=== PATIENT | female | born 1965 | race Caucasian/White ===

== ENCOUNTER 2019-12-03 11:54 | Observation (INO) ==
[~2019-12-03 11:54] MED LIST: Acetaminophen IV 1,000 MG/100 ML INFUS..BTL IVPB ONE; Celecoxib 200 MG CAPSULE PO ONE; Gabapentin 300 MG CAPSULE PO ONE; Total Joint Mixture (50 ml) IR ONE
[2019-12-03] MEDS ORDERED: Tranexamic Acid 1,000 MG/10 ML VIAL ONE (12:20)
[2019-12-03] MEDS ORDERED: Lidocaine -MPF 2% 2 ML VIAL ONE (12:20)
[2019-12-03] MEDS ORDERED: *HR* Midazolam HCl 2 MG/2 ML VIAL ONE (12:20)
[2019-12-03] MEDS ORDERED: Propofol 500 MG/50 ML INFUS..BTL ONE (12:20)
[2019-12-03] MEDS ORDERED: *HR* Propofol 200 MG/20 ML VIAL IVP ONE (12:20)
[2019-12-03] MEDS ORDERED: Albuterol 2.5 MG/3 ML NEBULIZER IH PRN (12:22)
[2019-12-03] MEDS ORDERED: CeFAZolin Syr 2,000MG/20 ML 2,000 MG/20 ML SYRINGE IVPB ONE (12:22)
[2019-12-03] MEDS ORDERED: Ringers Solution, Lactated 1,000 ML IVC SCH ×2 (12:30→17:37)
[2019-12-03] MEDS ORDERED: *HR* OxyCODONE Immed Rel 5 MG TABLET PO PRN (12:52)
[2019-12-03] MEDS ORDERED: *HR* Promethazine 25 MG/ML VIAL IVP PRN ×2 (12:52→17:37)
[2019-12-03] MEDS ORDERED: *HR* Labetalol 20 MG/4 ML SYRINGE IVP PRN (12:52)
[2019-12-03] MEDS ORDERED: Ondansetron 4 MG/2 ML VIAL IVP PRN ×2 (12:52→17:37)
[2019-12-03] MEDS ORDERED: *HR* HYDROmorphone 2 MG/ML SYRINGE IVP PRN (12:52)
[2019-12-03] MEDS ORDERED: Ethanol\\Acetic Acid\\Na Ace\\Ben 1,000 ML IRRIG.SOLN IR ONE (13:23)
[2019-12-03] MEDS ORDERED: ROPIVACAINE/PF/NS 0.25% 1 EACH SYRINGE INTRAART ONE (13:47)
[2019-12-03] MEDS ORDERED: *HR* FentaNYL (PF) 100 MCG/2 ML VIAL ONE (13:52)
[2019-12-03] MEDS ORDERED: *HR* PHENYLEPHRINE 1,000 MCG/10 ML SYRINGE IVP ONE ×2 (14:26→14:58)
[2019-12-03] MEDS ORDERED: Lidocaine OINT 35.44 GM TUBE TP ONE (15:47)
[2019-12-03 16:39] LABS: Hematocrit 43.8 % (35.3-44.9)
[2019-12-03 16:41] LABS: Hemoglobin 14.2 g/dL (11.5-15.4)
[2019-12-03] MEDS ORDERED: Sennosides 8.6 MG TABLET PO PRN (17:37)
[2019-12-03] MEDS ORDERED: Naloxone 0.4 MG/ML INJ IVP PRN (17:37)
[2019-12-03] MEDS ORDERED: MOM Conc 10 ML UD.LIQ PO PRN (17:37)
[2019-12-03] MEDS ORDERED: Temazepam 15 MG CAPSULE PO PRN (17:37)
[2019-12-03] MEDS: HYDROcodone BIT/Homatropine 5 MG TABLET PO PRN (19:19)
[2019-12-03] MEDS: Ascorbic Acid 500 MG TABLET PO SCH (19:20)
[2019-12-03] MEDS: Apixaban 5 MG TABLET PO SCH (20:53)
[2019-12-03] MEDS: Pregabalin 75 MG CAPSULE PO SCH (20:53)
[2019-12-04] MEDS: *HR* OxyCODONE Immed Rel 5 MG TABLET PO PRN ×3 (00:24→21:48)
[2019-12-04] MEDS: HYDROcodone BIT/Homatropine 5 MG TABLET PO PRN ×2 (02:17→15:58)
[2019-12-04 05:41] LABS: Basophils # 0.1 K/mcL (0.0-0.2); Basophils % 0.7 %; Eosinophils # 0.2 K/mcL (0.0-0.6); Eosinophils % 2.3 %; Hematocrit 41.8 % (35.3-44.9); Hemoglobin 13.4 g/dL (11.5-15.4); Immature Granulocytes % 0.3 % (0-4); Lymphocytes # 1.9 K/mcL (0.6-4.6); Lymphocytes % 22.1 %; Mean Corpuscular HGB Conc 32.1 g/dL (31.6-35.5); Mean Corpuscular Hemoglobin 31.2 pg (28.0-33.3); Mean Corpuscular Volume 97.2 fL (83.0-100.0); Mean Platelet Volume 9.7 fL (9.4-12.4); Monocytes # 0.6 K/mcL (0.0-1.3); Monocytes % 7.4 %; Neutrophils # 5.9 K/mcL (1.6-8.9); Platelet Count 223 K/mcL (140-400); Red Cell Distribution Width 13.2 % (11.5-14.5); Segmented Neutrophils % 67.2 %; White Blood Count 8.7 K/mcL (4.3-11.1)
[2019-12-04 06:03] LABS: BUN/Creatinine Ratio 22 (6-26); Blood Urea Nitrogen 16 mg/dL (6-20); Carbon Dioxide 25 mEq/L (23-29); Chloride 109 mEq/L (98-107); Glucose 98 mg/dL (70-105); Osmolality,Calculated 291 (280-300); Potassium 4.1 mEq/L (3.5-5.1); Sodium 140 mEq/L (136-145); eGFR For African Americans > 60 (> 60); eGFR For Non-African Americans > 60 (> 60)
[2019-12-04] MEDS: Apixaban 5 MG TABLET PO SCH (08:30)
[2019-12-04] MEDS: Pregabalin 75 MG CAPSULE PO SCH ×2 (08:30→19:54)
[2019-12-04] MEDS: Multivit/Ca/Min/Fe/FA 1 TAB TABLET PO SCH (08:31)
[2019-12-04] MEDS: Ascorbic Acid 500 MG TABLET PO SCH ×2 (08:31→15:58)
[2019-12-04] MEDS ORDERED: *HR* Enoxaparin 100 MG/ML SYRINGE SQ SCH (18:00)
[2019-12-05 01:18] LABS: Basophils # 0.1 K/mcL (0.0-0.2); Basophils % 0.4 %; Eosinophils # 0.1 K/mcL (0.0-0.6); Eosinophils % 1.2 %; Hematocrit 41.7 % (35.3-44.9); Hemoglobin 13.9 g/dL (11.5-15.4); Immature Granulocytes % 0.3 % (0-4); Lymphocytes # 1.7 K/mcL (0.6-4.6); Lymphocytes % 14.7 %; Mean Corpuscular HGB Conc 33.3 g/dL (31.6-35.5); Mean Corpuscular Volume 92.9 fL (83.0-100.0); Monocytes % 8.9 %; Neutrophils # 8.4 K/mcL (1.6-8.9); Platelet Count 242 K/mcL (140-400); Red Blood Count 4.49 M/mcL (3.82-4.97); Red Cell Distribution Width 13.2 % (11.5-14.5); Segmented Neutrophils % 74.5 %; White Blood Count 11.3 K/mcL (4.3-11.1)
[2019-12-05 01:39] LABS: BUN/Creatinine Ratio 15 (6-26); Blood Urea Nitrogen 11 mg/dL (6-20); Calcium 8.5 mg/dL (8.6-10.3); Carbon Dioxide 26 mEq/L (23-29); Chloride 105 mEq/L (98-107); Glucose 108 mg/dL (70-105); Osmolality,Calculated 286 (280-300); Potassium 4.1 mEq/L (3.5-5.1); Sodium 138 mEq/L (136-145); eGFR For African Americans > 60 (> 60); eGFR For Non-African Americans > 60 (> 60)
[2019-12-05] MEDS: *HR* OxyCODONE Immed Rel 5 MG TABLET PO PRN ×2 (04:25→09:20)
[2019-12-05] MEDS: Multivit/Ca/Min/Fe/FA 1 TAB TABLET PO SCH (09:14)
[2019-12-05] MEDS: Pregabalin 75 MG CAPSULE PO SCH (09:14)
[2019-12-05] MEDS: Ascorbic Acid 500 MG TABLET PO SCH (09:15)
[2019-12-05] MEDS: Apixaban 5 MG TABLET PO SCH ×2 (09:16→09:23)
[2019-12-05 10:24] VITALS: BP 151/85
== END 2019-12-05 13:50 | disposition home health service (06) ==
LOC: SAMDAY 11:54 → 3NENU 11:54
PROVIDERS: ADMIT Orthopaedic Surgery; ATTEND Orthopaedic Surgery